=== PATIENT | male | born 1955 ===

== ENCOUNTER 2024-09-10 12:30 | Outpatient (CLI) | payer OTHER | END 2024-09-10 12:32 | disposition home or self-care (01) | LOC: SONOGRAMA 12:30 | DX: R22.30 Localized swelling, mass and lump, unspecified upper limb (principal); D50.9 Iron deficiency anemia, unspecified; N44.2 Benign cyst of testis ==

== ENCOUNTER 2025-05-19 12:32 | Outpatient (CLI) | payer OTHER | END 2025-05-19 12:42 | disposition home or self-care (01) | LOC: SONOGRAMA 12:32 | DX: K76.0 Fatty (change of) liver, not elsewhere classified (principal) ==